=== PATIENT | male | born 1955 ===

== ENCOUNTER 2019-04-14 15:58 | Inpatient (IN) ==
[2019-04-14] MEDS ORDERED: ONDANSETRON 4 MG/2 ML VIAL IV STA (16:24)
[2019-04-14] MEDS ORDERED: SODIUM CHLORIDE 0.9% 1,000 ML IV STA (16:24)
[2019-04-14] MEDS ORDERED: cefTRIAXone 1,000 MG in SODIUM CHLORIDE 0.9% 100 ML IV STA (16:37)
[2019-04-14] MEDS ORDERED: metroNIDAZOLE INJ 500 MG in PREMIX 1 EACH IV STA (16:37)
[2019-04-14 17:03] LABS: Barbiturates Screen,Urine Negative (Negative); Benzodiazepines Screen,Urine Negative (Negative); Cannabinoid Screen,Urine Negative (Negative); Opiate Screen,Urine Positive (Negative); Phencyclidine Screen,Urine Negative (Negative)
[2019-04-14 17:08] LABS: Apearance,Urine CLEAR (Clear); Bilirubin,Urine Negative (Negative); Blood, Urine Negative (Negative); Glucose,Urine (UA) Negative (Negative); Ketones,Urine Negative (Negative); Mucus,Urine Few /LPF (Occasional); Nitrite,Urine Negative (Negative); Protein,Urine Negative; RBC,Urine 1 /HPF (0-4); Squamous Epithelial Cell,Urine Occasional /HPF (0-10); Urine Color Yellow (Yellow); Urine Urobilinogen < 2.0 EU/DL (0.2-1.0); WBC,Urine <1 /HPF (0-6)
[2019-04-14 17:11] LABS: Troponin I < 0.015 NG/ML (0.00-0.045)
[2019-04-14] MEDS ORDERED: KETOROLAC 30 MG/1 ML VIAL ONE (17:50)
[2019-04-14] MEDS ORDERED: KETOROLAC 30 MG/1 ML VIAL IV STA (17:52)
[2019-04-14] MEDS ORDERED: fentaNYL 100 MCG/2 ML VIAL IV STA (18:33)
[2019-04-14] MEDS ORDERED: TISSUE ADHESIVE 1 EACH APPLICATOR TOP ONE (20:37)
[2019-04-14] MEDS ORDERED: BUPIVACAINE MPF 0.25% /EPI 30 ML VIAL ONE (20:37)
[2019-04-14] MEDS ORDERED: LIDOCAINE 1%/EPI INJ 20 ML VIAL ONE (20:37)
[2019-04-14] MEDS ORDERED: ACETAMINOPHEN 325 MG TABLET PO PRN (21:55)
[2019-04-14] MEDS ORDERED: MORPHINE 4 MG/1 ML VIAL IV PRN (21:55)
[2019-04-14] MEDS ORDERED: ONDANSETRON 4 MG/2 ML VIAL IV PRN (21:55)
[2019-04-14] MEDS ORDERED: ALBUTEROL/IPRATROPIUM 3 ML NEB RESP TX ONE (22:08)
[2019-04-14] MEDS ORDERED: MIDAZOLAM 2 MG/2 ML VIAL ONE (22:18)
[2019-04-14] MEDS ORDERED: SEVOFLURANE 1 UNIT/15 MINUTE INH ONE (22:18)
[2019-04-14] MEDS ORDERED: PROPOFOL 200 MG/20 ML VIAL IV ONE (22:18)
[2019-04-14] MEDS ORDERED: DEXAMETHASONE 4 MG/1 ML VIAL ONE (22:19)
[2019-04-14] MEDS ORDERED: SUCCINYLCHOLINE 200 MG/10 ML VIAL ONE (22:19)
[2019-04-14] MEDS ORDERED: GLYCOPYRROLATE 0.4 MG/2 ML VIAL ONE (22:19)
[2019-04-14] MEDS ORDERED: ONDANSETRON 4 MG/2 ML VIAL ONE (22:19)
[2019-04-14] MEDS ORDERED: fentaNYL 100 MCG/2 ML VIAL ONE (22:19)
[2019-04-14] MEDS ORDERED: PHENYLEPHRINE 1 MG/10 ML SYRINGE IV ONE (22:19)
[2019-04-14] MEDS ORDERED: ROCURONIUM 100 MG/10 ML VIAL IV ONE (22:19)
[2019-04-14] MEDS ORDERED: LACTATED RINGERS 2,000 ML IV ONE (22:19)
[2019-04-14] MEDS ORDERED: ACETAMINOPHEN 1,000 MG/100 ML VIAL IV ONE (22:19)
[2019-04-14] MEDS ORDERED: NEOSTIGMINE 10 MG/10 ML VIAL ONE (22:19)
[2019-04-14] MEDS: LACTATED RINGERS 1,000 ML IV SCH (23:16)
[2019-04-14] MEDS: PIPERACILLIN/TAZOBACTAM 3,375 MG in SODIUM CHLORIDE 0.9% 100 ML IV SCH (23:23)
[2019-04-15 04:39] LABS: Basophils % 0.1 % (0.0-0.8); Hematocrit 42.9 VOL% (42.0-52.0); Hemoglobin 13.9 GM/DL (14.0-18.0); Immature Granulocytes % 0.4 %; Immature Granulocytes Absolute 0.07 #; Lymphocytes # 0.8 10*3/uL (1.4-4.0); Lymphocytes % 4.9 % (21.2-54.2); Mean Corpuscular HGB Conc 32.4 GM/DL (32-36); Mean Corpuscular Volume 94.3 FL (87-102); Mean Platelet Volume 9.6 FL (9.6-12.0); Monocytes % 5.3 % (1.7-12.7); Neutrophils % 89.3 % (38.7-73.9); Platelet Count 273 T/CUMM (130-400); Red Blood Count 4.55 MC/CUMM (3.8-5.5); Red Cell Distribution Width 13.1 % (9.3-17.3); White Blood Count 16.5 T/CUMM (4-12)
[2019-04-15 04:58] LABS: Calcium 7.5 MG/DL (8.5-10.1); Osmolality,Calculated 282.3 MOS/KG (273-304)
[2019-04-15] MEDS: PIPERACILLIN/TAZOBACTAM 3,375 MG in SODIUM CHLORIDE 0.9% 100 ML IV SCH ×3 (05:16→21:13)
[2019-04-15 05:43] LABS: Band Neutrophils 2 % (0-10); Lymphocytes 5 % (20-55); Segmented Neutrophils 88 % (50-85)
[2019-04-15 05:44] LABS: Platelet Estimate Adequate; Total Cells Counted 100
[2019-04-15] MEDS: LACTATED RINGERS 1,000 ML IV SCH ×2 (09:23→14:35)
[2019-04-15] MEDS: PANTOPRAZOLE 40 MG TABLET PO SCH (09:24)
[2019-04-16 05:16] LABS: Basophils % 0.2 % (0.0-0.8); Eosinophils % 0.1 % (0.00-10.9); Hematocrit 38.3 VOL% (42.0-52.0); Hemoglobin 12.7 GM/DL (14.0-18.0); Immature Granulocytes % 0.3 %; Immature Granulocytes Absolute 0.05 #; Lymphocytes # 2.2 10*3/uL (1.4-4.0); Lymphocytes % 15.2 % (21.2-54.2); Mean Corpuscular HGB Conc 33.2 GM/DL (32-36); Mean Corpuscular Volume 94.1 FL (87-102); Mean Platelet Volume 9.4 FL (9.6-12.0); Monocytes % 7.5 % (1.7-12.7); Neutrophils % 76.7 % (38.7-73.9); Platelet Count 255 T/CUMM (130-400); Red Blood Count 4.07 MC/CUMM (3.8-5.5); Red Cell Distribution Width 13.1 % (9.3-17.3); White Blood Count 14.6 T/CUMM (4-12)
[2019-04-16 05:38] LABS: Calcium 8.2 MG/DL (8.5-10.1)
[2019-04-16] MEDS: PIPERACILLIN/TAZOBACTAM 3,375 MG in SODIUM CHLORIDE 0.9% 100 ML IV SCH ×3 (05:41→21:05)
[2019-04-16] MEDS: LACTATED RINGERS 1,000 ML IV SCH ×2 (05:42→13:01)
[2019-04-16] MEDS: PANTOPRAZOLE 40 MG TABLET PO SCH (09:08)
[2019-04-16] MEDS: MONTELUKAST 10 MG TABLET PO SCH (09:08)
[2019-04-16] MEDS: CETIRIZINE 10 MG TABLET PO SCH (09:08)
[2019-04-17 04:50] LABS: Basophils % 0.3 % (0.0-0.8); Eosinophils # 0.1 10*3/uL (0.0-0.87); Eosinophils % 1.1 % (0.00-10.9); Hematocrit 40.3 VOL% (42.0-52.0); Hemoglobin 12.8 GM/DL (14.0-18.0); Immature Granulocytes % 0.4 %; Immature Granulocytes Absolute 0.04 #; Lymphocytes # 1.9 10*3/uL (1.4-4.0); Lymphocytes % 18.8 % (21.2-54.2); Mean Corpuscular HGB Conc 31.8 GM/DL (32-36); Mean Corpuscular Volume 94.4 FL (87-102); Mean Platelet Volume 9.3 FL (9.6-12.0); Monocytes % 7.7 % (1.7-12.7); Neutrophils % 71.7 % (38.7-73.9); Platelet Count 280 T/CUMM (130-400); Red Blood Count 4.27 MC/CUMM (3.8-5.5); Red Cell Distribution Width 12.8 % (9.3-17.3); White Blood Count 10.1 T/CUMM (4-12)
[2019-04-17] MEDS: LACTATED RINGERS 1,000 ML IV SCH ×2 (04:50→08:35)
[2019-04-17] MEDS: PIPERACILLIN/TAZOBACTAM 3,375 MG in SODIUM CHLORIDE 0.9% 100 ML IV SCH (05:35)
[2019-04-17] MEDS: CETIRIZINE 10 MG TABLET PO SCH (08:34)
[2019-04-17] MEDS: MONTELUKAST 10 MG TABLET PO SCH (08:34)
[2019-04-17] MEDS: PANTOPRAZOLE 40 MG TABLET PO SCH (08:34)
[2019-04-17 12:42] VITALS: BP 130/86
== END 2019-04-17 12:45 | disposition home or self-care (01) | DRG 340 ==
LOC: EDBD → EDUNIT# → N.ED 15:58 → N.EDINP 20:58 → N.5E 21:27
PROVIDERS: ADMIT Surgery; ATTEND Surgery